=== PATIENT | female | born 1950 | race Caucasian/White ===

== ENCOUNTER 2017-02-15 08:49 | Inpatient (IN) | payer OTHER ==
[2017-02-15 09:14] VITALS: BMI 32.8
[2017-02-15] MEDS ORDERED: LOPERAMIDE HCL 2 MG CAPSULE PO PRN (10:49)
[2017-02-15] MEDS ORDERED: IBUPROFEN 400 MG TABLET (FP) PO PRN (10:49)
[2017-02-15] MEDS ORDERED: ACETAMINOPHEN 325 MG TABLET (FP) PO PRN (10:49)
[2017-02-15] MEDS ORDERED: guaiFENesin/D-METHORPHAN HB 10 ML UNIT-DOSE CUPS PO PRN (10:49)
[2017-02-15] MEDS ORDERED: chlordiazePOXIDE HCL 25 MG CAPSULE PO PRN (10:49)
[2017-02-15] MEDS ORDERED: MENTHOL/PHENOL 1 EACH UD MM PRN (10:49)
[2017-02-15] MEDS ORDERED: MAG HYDROX/AL HYDROX/SIMETH 30 ML UNIT-DOSE CUP PO PRN (10:49)
[2017-02-15] MEDS ORDERED: NICOTINE POLACRILEX 2 MG GUM BC PRN (10:49)
[2017-02-15] MEDS ORDERED: P-EPHED 60MG/TRIPROLIDI 2.5MG TABLET PO PRN (10:49)
[2017-02-15] MEDS ORDERED: MAGNESIUM CITRATE 300 ML BOTTLE PO PRN (10:49)
--- NOTE | 2017-02-15 10:49 | HP ---
CIWA Score - CIWA Score Nausea/Vomitin Muscle Tremors: 3 Anxiety: 4-Mod. Anxious/Guarded Agitation: 3 Paroxysmal Sweats: 3 Orientation: 0-Oriented Tacttile Disturbances: 0-None Auditory Disturbances: 0-None Visual Disturbances: 0-None Headache: 3-Moderate CIWA-Ar Total Score: 19 Admission MERGED WITH [facility] - HPI Chief Complaint: alcohol and clonazepam withdrawal sx Allergies/Adverse Reactions: Allergies Allergy/AdvReac Type Severity Reaction Status Date / Time No Known Allergies Allergy Verified 02/15/17 10:42 History of Present Illness: 66 yo f with 1 year h/o increasing alcohol use and alcohol withdrawal sx when she does not use. would like to detox off of clonazepam swhich she has been taking for over 20 years and sometimes admitts to taking more than prescribed, PMHx depression, anxiety, nicotine depenednece. taking all meds. Patient reports taking poppy seed cake yesterday causing +ve oiates on uds, h/o head aneurysm s/p surger x2 in 2013. denies all illicit drug use smokes 1/2 PPD would like to stop. Lost daughter in car accidetn 19 years ago when she started with psych meds, alcohol use recent, rep-orts ba;ckouts and fall 1 month ago. Exam Limitations: No Limitations - Ebola screening Have you traveled outside of the country in the last 21 days: No Have you had contact with anyone from an Ebola affected area: No Have you been sick,other than usual withdrawal symptoms: No Do you have a fever: No - Review of Systems Constitutional: Chills, Diaphoresis, Changes in sleep, Weight Stable EENT: reports: No Symptoms Reported Respiratory: reports: No Symptoms reported Cardiac: reports: No Symptoms Reported GI: reports: Constipated, Nausea, Poor Appetite, Poor Fluid Intake, Abdominal cramping : reports: No Symptoms Reported Musculoskeletal: reports: No Symptoms Reported Integumentary: reports: Flushing, Sweating Neuro: reports: Headache, Numbness, Paresthesia, Tingling, Tremors, Weakness Endocrine: reports: Increased Thirst Hematology: reports: No Symptoms Reported Psychiatric: reports: Judgement Intact, Mood/Affect Appropiate, Orientated x3, Anxious, Depressed Other Systems: Reviewed and Negative Patient History - Patient Medical History Hx Anemia: No Hx Asthma: No Hx Chronic Obstructive Pulmonary Disease (COPD): No Hx Cancer: No Hx Cardiac Disorders: No Hx Congestive Heart Failure: No Hx Hypertension: Yes Hx Hypercholesterolemia: No Hx Pacemaker: No HX Cerebrovascular Accident: No Hx Seizures: No Hx Dementia: No Hx Diabetes: No Hx Gastrointestinal Disorders: No Hx Liver Disease: No Hx Genitourinary Disorders: No Hx Sexually Transmitted Disorders: No Hx Renal Disease (ESRD): No Hx Thyroid Disease: No Hx Human Immunodeficiency Virus (HIV): No Hx Hepatitis C: No Hx Depression: Yes Hx Suicide Attempt: No (no SI) Hx Bipolar Disorder: No Hx Schizophrenia: No - Patient Surgical History Hx Neurologic Surgery: Yes (x2 aneurysm 2014) Anesthesia Reaction: No - PPD History Documented Results: Negative w/o proof Implanted On Prior [facility] Admission?: No PPD to be Administered?: Yes - Reproductive History Patient is a Female of Child Bearing Age (11 -55 yrs old): No Patient : No - Smoking Cessation Smoking history: Current every day smoker Have you smoked in the past 12 months: Yes Aproximately how many cigarettes per day: 10 Hx Chewing Tobacco Use: Yes Initiated information on smoking cessation: Yes 'Breaking Loose' booklet given: 02/15/17 - Substance & Tx. History Hx Alcohol Use: Yes Hx Substance Use: Yes Substance Use Type: Alcohol, Prescribed, Tranquilizers Hx Substance Use Treatment: No - Substances Abused Benzodiazepine (Klonopin) Route: Oral Frequency: Daily Amount used: 0.5 daily prescrbied Age of first use: 46 Date of Last Use: 02/14/17 Alcohol Route: Oral Frequency: Daily Amount used: beer, wine, spirits Age of first use: 64 Date of Last Use: 02/15/17 Alcohol-beer/wine/vodka Route: Oral Frequency: Daily Amount used: 12 (12 oz.)/1/4 pt. Age of first use: 65 Date of Last Use: 02/14/17 Klonopin Route: Oral Frequency: 1-2 times per week Amount used: 1 mg. Age of first use: 65 Date of Last Use: 02/14/17 Family Disease History - Family Disease History Family History: Denies Admission Physical Exam [facility] - Vital Signs Vital Signs: Vital Signs - 24 hr 02/15/17 09:11 Temperature 97.7 F Pulse Rate 68 Respiratory 18 Rate Blood Pressure 110/80 - Physical General Appearance: Yes: Nourished, Appropriately Dressed, Disheveled, Mild Distress, Tremorous, Irritable, Sweating, Anxious HEENTM: Yes: Within Normal Limits, EOMI, Hearing grossly Normal, Normal ENT Inspection, Normocephalic, Normal Voice, STEFANI, Pharynx Normal Respiratory: Yes: Within Normal Limits, Chest Non-Tender, Lungs Clear, Normal Breath Sounds, No Respiratory Distress, No Accessory Muscle Use Neck: Yes: Within Normal Limits, No masses,lesions,Nodules, Supple, Trachea in good position Breast: Yes: Breast Exam Deferred Cardiology: Yes: Within Normal Limits, Regular Rhythm, Regular Rate, S1, S2 Abdominal: Yes: Within Normal Limits, Normal Bowel Sounds, Non Tender, Flat Genitourinary: Yes: Within Normal Limits Back: Yes: Within Normal Limits, Normal Inspection Musculoskeletal: Yes: Within Normal Limits, full range of Motion, Gait Steady, Pelvis Stable Extremities: Yes: Normal Capillary Refill, Normal Range of Motion, Non-Tender, Tremors Neurological: Yes: exercise rider II-XII NML intact, Fully Oriented, Alert, Motor Strength 5/5, Normal Response, Depressed Affect Integumentary: Yes: Normal Color, Warm, Diaphoresis, Moist Lymphatic: Yes: Within Normal Limits - Addiitonal Findings: withdrawal sx - Diagnostic (1) Alcohol dependence with uncomplicated withdrawal Current Visit: Yes Status: Acute (2) Anxiety Current Visit: Yes Status: Acute (3) Depressed Current Visit: Yes Status: Acute (4) Essential hypertension Current Visit: Yes Status: Acute (5) Insomnia Current Visit: Yes Status: Acute (6) Nicotine dependence Current Visit: Yes Status: Acute (7) Sedative, hypnotic or anxiolytic dependence with withdrawal, uncomplicated Current Visit: Yes Status: Acute Cleared for Admission [facility] - Detox or Rehab [facility] Level of Care: Medically Managed Detox Regimen/Protocol: Librium [facility] Breath Alcohol Content Breath Alcohol Content: 0.204 Urine Pregancy Test - Result Urine Test Results: Negative- NO Line Present Urine Drug Screen - Results Drug Screen Negative: No Urine Drug Screen Results: OPI-Opiates
[2017-02-15] MEDS ORDERED: ONDANSETRON *ODT* 4 MG TABLET SL PRN (10:53)
[2017-02-15] MEDS ORDERED: chlordiazePOXIDE HCL 25 MG CAPSULE PO ONE (13:30)
[2017-02-15] MEDS ORDERED: ONDANSETRON *ODT* 4 MG TABLET SL ONE (13:30)
[2017-02-15] MEDS: NICOTINE 14 MG/24 HOURS TOPICAL PATCH TD SCH (14:57)
[2017-02-15 15:22] LABS: ANION GAP 8 (8-16); BILIRUBIN,TOTAL 0.3 mg/dL (0.2-1.0); BLOOD UREA NITROGEN 15 mg/dL (7-18); CALCIUM 8.9 mg/dL (8.5-10.1); CHLORIDE 104 mmol/L (98-107); CO2 27 mmol/L (21-32); CREATININE 0.8 mg/dL (0.55-1.02); GLUCOSE,RANDOM 89 mg/dL (74-106); POTASSIUM 4.6 mmol/L (3.5-5.1); SGOT/AST 54 U/L (15-37); SGPT/ALT 59 U/L (12-78); SODIUM 139 mmol/L (136-145); TOT PROT 8.5 g/dl (6.4-8.2)
[2017-02-15 15:23] LABS: ALK PHOS 120 U/L (45-117)
[2017-02-15 15:23] LABS: HEMATOCRIT 45.1 % (32.4-45.2); HEMOGLOBIN 14.9 GM/dL (10.7-15.3); MCH 31.4 pg (25.7-33.7); MEAN CELL VOLUME 95.1 fl (80-96); MEAN PLT VOLUME 9.4 fl (7.5-11.1); RBC 4.74 M/mm3 (3.60-5.2); RDW 14.9 % (11.6-15.6); WHITE BLOOD COUNT 7.4 K/mm3 (4.0-10.0)
--- NOTE | 2017-02-15 15:35 | CONSULT ---
[facility] Psychiatric Consult - Data Date of interview: 02/15/17 Admission source: [facility] Identifying data: This is 66 years old female with no psychiatric hospitalizatiuon history, intoxicated with: Alcohol, Opioids and Nicotine, Klonopin Substance Abuse History: - Smoking Cessation. Smoking history: Current every day smoker. Have you smoked in the past 12 months: Yes. Aproximately how many cigarettes per day: 10. Hx Chewing Tobacco Use: Yes. Initiated information on smoking cessation: Yes. 'Breaking Loose' booklet given: 02/15/17. - Substance & Tx. History. Hx Alcohol Use: Yes. Hx Substance Use: Yes. Substance Use Type : Alcohol, Prescribed, Tranquilizers. Hx Substance Use Treatment: No. - Substances Abused. Benzodiazepine (Klonopin). Route: Oral. Frequency: Daily. Amount used: 0.5 daily prescrbied. Age of first use: 46. Date of Last Use: 02/14/17. Alcohol. Route: Oral. Frequency: Daily. Amount used: beer , wine, spirits. Age of first use: 64. Date of Last Use: 02/15/17. Alcohol -beer/wine/vodka. Route: Oral. Frequency: Daily. Amount used: 12 (12 oz.)/1/ 4 pt. Age of first use: 65. Date of Last Use: 02/14/17. Klonopin. Route: Oral. Frequency: 1-2 times per week. Amount used: 1 mg. Age of first use: 65. Date of Last Use: 02/14/17 Medical History: HTN Psychiatric History: Patient reportws history of depression and anxiety, reports taking prior to admission: Wellbutrin XL 150mg poqd. Trazodone 100mg po qhs Physical/Sexual Abuse/Trauma History: Denies Additional Comment: Wellbutrin XL 150mg poqd. Trazodone 100mg po qhs Mental Status Exam - Mental Status Exam Alert and Oriented to: Person Cognitive Function: Fair Patient Appearance: Well Groomed Mood: Anxious Affect: Mood Congruent Patient Behavior: Cooperative Speech Pattern: Appropriate Voice Loudness: Normal Thought Process: Goal Oriented Thought Disorder: Being Controlled Hallucinations: Denies Suicidal Ideation: Denies Homicidal Ideation: Denies Insight/Judgement: Fair Sleep: Difficulty falling asleep Appetite: Fair Muscle strength/Tone: Mild Hypertonicity Gait/Station: Deferred Additional Comments: Wellbutrin XL 150mg poqd. Trazodone 100mg po qhs Psychiatric Findings - Problem List ([place] 1, 2,3) (1) Alcohol dependence with uncomplicated withdrawal Current Visit: Yes Status: Acute (2) Nicotine dependence Current Visit: Yes Status: Acute (3) Sedative, hypnotic or anxiolytic dependence with withdrawal, uncomplicated Current Visit: Yes Status: Acute - Initial Treatment Plan Initial Treatment Plan: Wellbutrin XL 150mg poqd. Trazodone 100mg po qhs
[2017-02-15] MEDS: chlordiazePOXIDE HCL 25 MG CAPSULE PO SCH ×2 (17:17→22:24)
[2017-02-15 17:25] LABS: URINE APPEARANCE SLCLOUDY; URINE BILIRUBIN NEGATIVE (NEGATIVE); URINE BLOOD NEGATIVE (NEGATIVE); URINE COLOR YELLOW; URINE GLUCOSE (UA) NEGATIVE (NEGATIVE); URINE KETONE NEGATIVE (NEGATIVE); URINE LEUK ESTERASE NEGATIVE (NEGATIVE); URINE NITRITE NEGATIVE (NEGATIVE); URINE PROTEIN NEGATIVE (NEGATIVE); URINE UROBILINOGEN NEGATIVE mg/dL (0.2-1.0)
[2017-02-15] MEDS: traZODone HCL 50 MG TABLET (FP) PO SCH (22:23)
[2017-02-15] MEDS: THIAMINE HCL 100 MG TABLET (FP) PO SCH (22:23)
[2017-02-15] MEDS: DOCUSATE SODIUM 100 MG CAPSULE (FP) PO SCH (22:23)
[2017-02-16] MEDS: chlordiazePOXIDE HCL 25 MG CAPSULE PO SCH ×4 (05:40→22:31)
[2017-02-16] MEDS: PRENATAL VITAMINS W/ FOLIC ACID TABLET (FP) PO SCH (10:53)
[2017-02-16] MEDS: NICOTINE 14 MG/24 HOURS TOPICAL PATCH TD SCH (10:53)
[2017-02-16] MEDS ORDERED: diphenhydrAMINE HCL 50 MG CAPSULE PO ONE (11:28)
--- NOTE | 2017-02-16 11:38 | PN ---
S CIWA - CIWA Score Nausea/Vomitin-No Nausea/No Vomiting Muscle Tremors: 4-Moderate,w/Arms Extend Anxiety: 3 Agitation: 3 Paroxysmal Sweats: 3 Orientation: 0-Oriented Tacttile Disturbances: 1-Very Mild Itch/Numbness Auditory Disturbances: 0-None Visual Disturbances: 0-None Headache: 1-Very Mild CIWA-Ar Total Score: 15 BHS Progress Note (SOAP) Subjective: rash to right elbow sweats shakes agitation body aches Objective: 02/16/17 11:36 Vital Signs Temperature 97.2 F L 02/16/17 10:00 Pulse Rate 80 02/16/17 10:00 Respiratory Rate 18 02/16/17 10:00 Blood Pressure 118/68 02/16/17 10:00 O2 Sat by Pulse Oximetry (%) Laboratory Tests 02/15/17 02/15/17 02/15/17 11:03 11:03 11:03 WBC RBC Hgb Hct MCV MCH MCHC RDW Plt Count MPV Sodium 139 Potassium 4.6 Chloride 104 Carbon Dioxide 27 Anion Gap 8 BUN 15 Creatinine 0.8 Creat Clearance w eGFR > 60 Random Glucose 89 Calcium 8.9 Total Bilirubin 0.3 AST 54 H ALT 59 Alkaline Phosphatase 120 H Total Protein 8.5 H Albumin 4.0 Urine Color Urine Appearance Urine pH Ur Specific [place] Urine Protein Urine Glucose (UA) Urine Ketones Urine Blood Urine Nitrite Urine Bilirubin Urine Urobilinogen Ur Leukocyte Esterase RPR Titer Nonreactive Hepatitis C Antibody <0.1 02/15/17 02/15/17 11:30 15:00 WBC 7.4 RBC 4.74 Hgb 14.9 Hct 45.1 MCV 95.1 MCH 31.4 MCHC 33.0 RDW 14.9 Plt Count No Result Required. MPV 9.4 Sodium Potassium Chloride Carbon Dioxide Anion Gap BUN Creatinine Creat Clearance w eGFR Random Glucose Calcium Total Bilirubin AST ALT Alkaline Phosphatase Total Protein Albumin Urine Color Yellow Urine Appearance Slcloudy Urine pH 5.0 Ur Specific [place] 1.019 Urine Protein Negative Urine Glucose (UA) Negative Urine Ketones Negative Urine Blood Negative Urine Nitrite Negative Urine Bilirubin Negative Urine Urobilinogen Negative Ur Leukocyte Esterase Negative RPR Titer Hepatitis C Antibody aaox3 ambulating no acute distress Assessment: 02/16/17 11:37 withdrawal sx Plan: continue detox increase fluid benadryl 50mg x one hydrocortizone cream
[2017-02-16] MEDS ORDERED: PNEUMOC 13-VAL CONJ-DIP CRM/PF 0.5 ML DISP.SYRIN IM ONE (12:00)
[2017-02-16] MEDS ORDERED: PNEUMOCOCCAL 23 VACCINE 0.5 ML VIAL IM ONE (12:00)
[2017-02-16] MEDS ORDERED: FLU VACCINE QUAD 60 MCG/0.5 ML (MDV 17-18) IM ONE (12:00)
[2017-02-16] MEDS ORDERED: diphenhydrAMINE HCL 25 MG CAPSULE (FP) PO ONE (12:30)
[2017-02-16] MEDS: HYDROCORTISONE 1% TOPICAL CREAM 30 GM TUBE TP PRN ×2 (12:34→22:30)
[2017-02-16] MEDS: SELENIUM SULFIDE 2.5% LOTION 4 OZ. TP SCH (14:42)
--- NOTE | 2017-02-16 15:19 | EKG ---
Test Reason : Blood Pressure : / mmHG Vent. Rate : 070 BPM Atrial Rate : 070 BPM P-R Int : 148 ms QRS Dur : 084 ms QT Int : 402 ms P-R-T Axes : 044 061 040 degrees QTc Int : 434 ms NORMAL SINUS RHYTHM NORMAL ECG NO PREVIOUS ECGS AVAILABLE Confirmed by Antonio Robles MD ([id number]) on 02/16/2017 3:19:14 PM Referred By: Confirmed By:Antonio Robles MD
[2017-02-16] MEDS: MAGNESIUM HYDROX 2400MG/30ML ORAL SUSPENSION 30 ML CUP PO PRN (16:46)
[2017-02-16] MEDS: DOCUSATE SODIUM 100 MG CAPSULE (FP) PO SCH (22:31)
[2017-02-16] MEDS: traZODone HCL 50 MG TABLET (FP) PO SCH (22:31)
[2017-02-16] MEDS: THIAMINE HCL 100 MG TABLET (FP) PO SCH (22:31)
[2017-02-17] MEDS: chlordiazePOXIDE HCL 25 MG CAPSULE PO SCH ×2 (06:09→10:27)
[2017-02-17] MEDS: HYDROCORTISONE 1% TOPICAL CREAM 30 GM TUBE TP PRN ×2 (06:10→22:41)
[2017-02-17] MEDS: PRENATAL VITAMINS W/ FOLIC ACID TABLET (FP) PO SCH (10:27)
[2017-02-17] MEDS: SELENIUM SULFIDE 2.5% LOTION 4 OZ. TP SCH (10:28)
[2017-02-17] MEDS: NICOTINE 14 MG/24 HOURS TOPICAL PATCH TD SCH (10:28)
[2017-02-17] MEDS ORDERED: NYSTATIN 100,000 UNIT/GM TOPICAL CREAM 15 GM TUBE TP SCH (11:30)
--- NOTE | 2017-02-17 11:32 | PN ---
[facility] CIWA - CIWA Score Nausea/Vomitin-Mild Nausea/No Vomiting Muscle Tremors: 3 Anxiety: 4-Mod. Anxious/Guarded Agitation: 3 Paroxysmal Sweats: 3 Orientation: 0-Oriented Tacttile Disturbances: 0-None Auditory Disturbances: 0-None Visual Disturbances: 0-None Headache: 0-None Present CIWA-Ar Total Score: 14 S Progress Note (SOAP) Subjective: anxious tremors C/o rast to groin/upper thigh area Objective: anxious no acute distress 02/17/17 11:31 Laboratory Last Values WBC 7.4 K/mm3 (4.0-10.0) 02/15/17 11:30 RBC 4.74 M/mm3 (3.60-5.2) 02/15/17 11:30 Hgb 14.9 GM/dL (10.7-15.3) 02/15/17 11:30 Hct 45.1 % (32.4-45.2) 02/15/17 11:30 MCV 95.1 fl (80-96) 02/15/17 11:30 MCH 31.4 pg (25.7-33.7) 02/15/17 11:30 MCHC 33.0 g/dl (32.0-36.0) 02/15/17 11:30 RDW 14.9 % (11.6-15.6) 02/15/17 11:30 Plt Count No Result Required. 02/15/17 11:30 MPV 9.4 fl (7.5-11.1) 02/15/17 11:30 Sodium 139 mmol/L (136-145) 02/15/17 11:03 Potassium 4.6 mmol/L (3.5-5.1) 02/15/17 11:03 Chloride 104 mmol/L (98-107) 02/15/17 11:03 Carbon Dioxide 27 mmol/L (21-32) 02/15/17 11:03 Anion Gap 8 (8-16) 02/15/17 11:03 BUN 15 mg/dL (7-18) 02/15/17 11:03 Creatinine 0.8 mg/dL (0.55-1.02) 02/15/17 11:03 Creat Clearance w eGFR > 60 (>60) 02/15/17 11:03 Random Glucose 89 mg/dL (74-106) 02/15/17 11:03 Calcium 8.9 mg/dL (8.5-10.1) 02/15/17 11:03 Total Bilirubin 0.3 mg/dL (0.2-1.0) 02/15/17 11:03 AST 54 U/L (15-37) H 02/15/17 11:03 ALT 59 U/L (12-78) 02/15/17 11:03 Alkaline Phosphatase 120 U/L (45-117) H 02/15/17 11:03 Total Protein 8.5 g/dl (6.4-8.2) H 02/15/17 11:03 Albumin 4.0 g/dl (3.4-5.0) 02/15/17 11:03 Urine Color Yellow 02/15/17 15:00 Urine Appearance Slcloudy 02/15/17 15:00 Urine pH 5.0 (5.0-8.0) 02/15/17 15:00 Ur Specific [place] 1.019 (1.001-1.035) 02/15/17 15:00 Urine Protein Negative (NEGATIVE) 02/15/17 15:00 Urine Glucose (UA) Negative (NEGATIVE) 02/15/17 15:00 Urine Ketones Negative (NEGATIVE) 02/15/17 15:00 Urine Blood Negative (NEGATIVE) 02/15/17 15:00 Urine Nitrite Negative (NEGATIVE) 02/15/17 15:00 Urine Bilirubin Negative (NEGATIVE) 02/15/17 15:00 Urine Urobilinogen Negative mg/dL (0.2-1.0) 02/15/17 15:00 Ur Leukocyte Esterase Negative (NEGATIVE) 02/15/17 15:00 RPR Titer Nonreactive (NONREACTIVE) 02/15/17 11:03 Hepatitis C Antibody <0.1 s/co ratio (0.0-0.9) 02/15/17 11:03 labs noted Assessment: 02/17/17 11:32 withdrawal sx Plan: continue detox Nystatin cream
[2017-02-17] MEDS: chlordiazePOXIDE 5 MG CAPSULE PO SCH ×2 (17:41→22:41)
[2017-02-17] MEDS: NYSTATIN 100,000 UNIT/GM TOPICAL CREAM 15 GM TUBE TP SCH (22:40)
[2017-02-17] MEDS: THIAMINE HCL 100 MG TABLET (FP) PO SCH (22:41)
[2017-02-17] MEDS: traZODone HCL 50 MG TABLET (FP) PO SCH (22:41)
[2017-02-17] MEDS: DOCUSATE SODIUM 100 MG CAPSULE (FP) PO SCH (22:41)
[2017-02-18] MEDS: chlordiazePOXIDE 5 MG CAPSULE PO SCH ×2 (05:56→11:31)
[2017-02-18] MEDS ORDERED: COLLOIDAL OATMEAL 1 BAR EACH TP PRN (08:42)
--- NOTE | 2017-02-18 10:40 | PN ---
BHS Progress Note (SOAP) Subjective: dry skin sweats anxiety Objective: 02/18/17 10:47 Vital Signs Temperature 96.6 F L 02/18/17 10:18 Pulse Rate 68 02/18/17 10:18 Respiratory Rate 20 02/18/17 10:18 Blood Pressure 103/71 02/18/17 10:18 O2 Sat by Pulse Oximetry (%) aaox3 ambulating no acute distress Assessment: 02/18/17 10:47 withdrawal sx Plan: continue detox increase fluids aveeno soap d/c in am
[2017-02-18] MEDS: SELENIUM SULFIDE 2.5% LOTION 4 OZ. TP SCH (10:44)
[2017-02-18] MEDS: PRENATAL VITAMINS W/ FOLIC ACID TABLET (FP) PO SCH (10:45)
[2017-02-18] MEDS: NYSTATIN 100,000 UNIT/GM TOPICAL CREAM 15 GM TUBE TP SCH ×2 (10:46→22:25)
[2017-02-18] MEDS: NICOTINE 14 MG/24 HOURS TOPICAL PATCH TD SCH (10:46)
[2017-02-18] MEDS: MAGNESIUM HYDROX 2400MG/30ML ORAL SUSPENSION 30 ML CUP PO PRN (12:37)
[2017-02-18] MEDS: hydrOXYzine PAMOATE 50 MG CAPSULE (FP) PO PRN ×2 (13:38→16:49)
[2017-02-18] MEDS: chlordiazePOXIDE HCL 10 MG CAPSULE PO SCH ×2 (16:49→22:25)
[2017-02-18] MEDS: HYDROCORTISONE 1% TOPICAL CREAM 30 GM TUBE TP PRN (22:25)
[2017-02-18] MEDS: THIAMINE HCL 100 MG TABLET (FP) PO SCH (22:25)
[2017-02-18] MEDS: traZODone HCL 50 MG TABLET (FP) PO SCH (22:25)
[2017-02-18] MEDS: DOCUSATE SODIUM 100 MG CAPSULE (FP) PO SCH (22:26)
[2017-02-19] MEDS: chlordiazePOXIDE HCL 10 MG CAPSULE PO SCH (06:14)
[2017-02-19 06:40] VITALS: BP 120/73; PULSE 70; TEMP 98.2
[2017-02-19] MEDS: NICOTINE 14 MG/24 HOURS TOPICAL PATCH TD SCH (09:17)
[2017-02-19] MEDS: PRENATAL VITAMINS W/ FOLIC ACID TABLET (FP) PO SCH (09:24)
--- NOTE | 2017-02-20 08:07 | DS ---
[facility] Detox Discharge Summary Admission Date: 02/15/17 Discharge Date: 02/19/17 - History Present History: Alcohol Dependence, Sedative Dependence Additional Comments: follow up with after care program as arrangement Pertinent Past History: essential hypertension - Physical Exam Results Vital Signs: Vital Signs Temperature 98.2 F 02/19/17 06:00 Pulse Rate 70 02/19/17 06:00 Respiratory Rate 18 02/19/17 06:00 Blood Pressure 120/73 02/19/17 06:00 O2 Sat by Pulse Oximetry (%) Pertinent Admission Physical Exam Findings: withdrawal signs and symptom - Treatment Hospital Course: Detox Protocol Followed, Detoxed Safely, Responded well, Discharged Condition Good Patient has Accepted a Rehab Referral to: declined - Medication Discharge Medications: Ambulatory Orders Acetaminophen/Caffeine/Butalb [Fioricet -] 1 tab PO Q4H 10/03/13 BUPROPion HCL "SR" [Wellbutrin Sr -] 150 mg PO DAILY 10/03/13 Metoprolol Succinate [Toprol XL -] 25 mg PO BID 10/03/13 Bupropion HCl [Wellbutrin Xl -] 150 mg PO DAILY #30 tab.sr.24h 02/15/17 Trazodone HCl [Desyrel -] 100 mg PO HS #30 tablet 02/15/17 Hydrocortisone 1% Cream [Hytone 1% Cream -] 1 applic TP QID PRN #90 tube Trazodone HCl 100 mg PO HS #30 tablet 02/18/17 Metoprolol Succinate [Toprol Xl] 50 mg PO DAILY #30 tab.er.24h 02/19/17 - Diagnosis (1) Alcohol dependence with uncomplicated withdrawal Status: Chronic (2) Sedative, hypnotic or anxiolytic dependence with withdrawal, uncomplicated Status: Chronic (3) Essential hypertension Status: Chronic (4) Nicotine dependence Status: Chronic Qualifiers: Nicotine product type: cigarettes Substance use status: uncomplicated Qualified Code(s): F17.210 - Nicotine dependence, cigarettes, uncomplicated (5) Anxiety Status: Acute - AMA Did Patient Leave Against Medical Advice: No
== END 2017-02-19 09:55 | disposition home or self-care (01) | DRG 897 ==
LOC: YASAS 08:49 → Y6N 12:20 → MERGE 12:20 → Y6N 23:06
PROVIDERS: ADMIT Internal Medicine; ATTEND Internal Medicine
PROC: HZ2ZZZZ Detoxification Services for Substance Abuse Treatment (ICD-10-PCS; principal; 2017-02-15)
DX: F13.230 Sedative, hypnotic or anxiolytic dependence with withdrawal, uncomplicated (principal); F10.230 Alcohol dependence with withdrawal, uncomplicated; F17.210 Nicotine dependence, cigarettes, uncomplicated; F41.9 Anxiety disorder, unspecified; F32.9 Major depressive disorder, single episode, unspecified; G47.00 Insomnia, unspecified; I10 Essential (primary) hypertension
CPT/HCPCS: 36415; 80053; 81003; 85027; 86593; 86803; 90688; 90732; 93005; 93010; G0008; G0009